=== PATIENT | male | born 1965 | race Caucasian/White ===

== ENCOUNTER 2020-03-12 10:32 | Emergency (ER) | payer OTHER ==
[~2020-03-12] VITALS: Ht 175.3 cm; Wt 77.1 kg
[2020-03-12 11:06] LABS: ABSOLUTE BASOPHILS 0.1 thou/uL (0.0-0.2); ABSOLUTE EOSINOPHILS 0.1 thou/uL (0.0-0.7); ABSOLUTE LYMPHOCYTES 1.5 thou/uL (0.8-5.3); ABSOLUTE NEUTROPHILS 3.9 thou/uL (1.6-8.1); BASOPHILS 1.1 %; EOSINOPHILS 0.9 %; HEMATOCRIT 43.9 % (42.0-52.0); HEMOGLOBIN 15.2 gm/dL (14.0-18.0); LYMPHOCYTES 22.3 %; MCHC 34.7 g/dL (28.0-37.0); MCV 100.9 fL (80.0-100.0); MONOCYTES 15.7 %; MPV 8.2 fl. (7.2-11.1); NUCLEATED RBCS 0 /100WBC; PLATELET COUNT* 91 thou/uL (150-400); RBC 4.35 mil/uL (4.50-6.00); RDW-CV 13.7 % (10.5-14.5); WBC 6.5 thou/uL (4.0-11.0)
[2020-03-12 11:19] LABS: CREATININE 0.7 mg/dL (0.6-1.3); POTASSIUM 3.7 mmol/L (3.5-5.1)
[2020-03-12] MEDS ORDERED: LEVAQUIN 750 M750 MG PO (13:27)
[2020-03-12 13:43] VITALS: BP 141/70
== END 2020-03-12 13:44 | disposition home or self-care (01) ==
LOC: M.ERS 10:32
PROVIDERS: Emergency Medicine Emergency Medical Services
DX: H61.001 Unspecified perichondritis of right external ear (principal)

== ENCOUNTER 2020-10-09 11:09 | Emergency (ER) | payer OTHER ==
[~2020-10-09] VITALS: Ht 175.3 cm; Wt 74.8 kg
[~2020-10-09 11:09] MED LIST: LEVAQUIN 750 M750 MG PO
[2020-10-09] MEDS ORDERED: CLONIDINE HCL0.1 MG PO (11:47)
[2020-10-09 11:49] LABS: ABSOLUTE BASOPHILS 0.1 thou/uL (0.0-0.2); ABSOLUTE EOSINOPHILS 0.1 thou/uL (0.0-0.7); ABSOLUTE LYMPHOCYTES 1.9 thou/uL (0.8-5.3); ABSOLUTE MONOCYTES 0.9 thou/uL (0.0-1.2); ABSOLUTE NEUTROPHILS 4.7 thou/uL (1.6-8.1); BASOPHILS 1.3 %; EOSINOPHILS 1.3 %; HEMATOCRIT 43.5 % (42.0-52.0); LYMPHOCYTES 24.6 %; MCH 33.6 pg (26.0-34.0); MCHC 34.4 g/dL (28.0-37.0); MCV 97.9 fL (80.0-100.0); MONOCYTES 11.4 %; MPV 7.9 fl. (7.2-11.1); NUCLEATED RBCS 0 /100WBC; PLATELET COUNT* 93 thou/uL (150-400); POLYS 61.4 %; RBC 4.44 mil/uL (4.50-6.00); RDW-CV 13.6 % (10.5-14.5); WBC 7.6 thou/uL (4.0-11.0)
[2020-10-09 11:57] LABS: CALCIUM 8.4 mg/dL (8.5-10.1); CREATININE 0.7 mg/dL (0.6-1.3); POTASSIUM 3.9 mmol/L (3.5-5.1)
[2020-10-09 12:00] LABS: APTT 30.3 Seconds (25.0-31.3); INR 1.1; PROTIME 11.9 Seconds (9.20-11.50)
[2020-10-09 12:02] LABS: ALBUMIN 3.3 g/dL (3.4-5.0); TOTAL PROTEIN 7.7 g/dL (6.4-8.2)
[2020-10-09 13:02] LABS: URINE BILIRUBIN NEGATIVE (Negative); URINE BLOOD NEGATIVE (Negative); URINE CLARITY CLEAR; URINE COLOR YELLOW; URINE GLUCOSE-RANDOM NEGATIVE (Negative); URINE KETONES NEGATIVE (Negative); URINE LEUKOCYTES-REFLEX NEGATIVE (Negative); URINE NITRITE-REFLEX NEGATIVE (Negative); URINE PROTEIN NEGATIVE (Negative); URINE UROBILINOGEN 0.2 E.U./dl (0.2-1.0)
[2020-10-09 13:18] VITALS: BP 145/78
--- NOTE | 2020-10-09 17:51 | EKG ---
[place] [address] ELECTROCARDIOGRAM REPORT Name: KARISSA CRESPO Room: [facility]#: [id number] Admission: 10/09/20 Attend Phys: Discharge: Date of : 63 Date of Service: 10/09/20 1138 Report #: [id number] THIS REPORT FOR: //name// [facility] ED Test Date: 2020-10-09 Test Time: 11:38:16 Pat Name: KARISSA CRESPO Department: Room: Gender: [employer]: [place] : 1965 Requested By: Tawny Rizo Order Number: [id number] MD: Fernando Weinstein Measurements Intervals [place] Rate: 76 P: 43 MS: 166 QRS: -7 QRSD: 102 T: 75 QT: 406 QTc: 457 Interpretive Statements Sinus rhythm Possible anteroseptal infarct, age indeterminate No previous ECG available for comparison Electronically Signed On 10-09-2020 17:51:34 DATA ENTRY SUPERVISOR by Fernando Weinstein [email or web address] <ELECTRONICALLY SIGNED> By: Fernando Weinstein MD, [facility] 10/09/20 1751 1138 113 Fernando Weinstein MD, FAC /EPI
== END 2020-10-09 13:19 | disposition home or self-care (01) ==
LOC: M.ERS 11:09
PROVIDERS: Nurse Practitioner Family
DX: I10 Essential (primary) hypertension (principal); R04.0 Epistaxis; R94.5 Abnormal results of liver function studies; F17.210 Nicotine dependence, cigarettes, uncomplicated